=== PATIENT | female | born 1955 | race African-American/Black ===

== ENCOUNTER 2025-03-22 17:16 | Inpatient (IN) | payer MEDICARE, MEDICAID ==
[~2025-03-22] VITALS: Ht 165.1 cm; Wt 64.4 kg
[~2025-03-22 17:16] MED LIST: LEVO500T2 PO; P20 PO; PHEN100C4; PHEN100C4 PO; PRED10TA PO; PRED5TAB48 PO
[2025-03-22 17:25] VITALS: O2SAT 99
[2025-03-22] MEDS: CEFTRIAXONE 1GM/50ML 50 ML IV ONE (17:48)
[2025-03-22 17:56] LABS: BASOPHILS % 0.4 % (0.0-2.0); EOSINOPHILS % 0.2 % (0.0-5.0); HEMATOCRIT. 37.0 % (36.0-48.0); HEMOGLOBIN. 11.9 g/dL (12.0-16.0); LYMPHOCYTES % 37.1 % (20.0-50.0); MEAN PLATELET VOLUME 8.8 fl (7.4-10.4); MONOCYTES % 5.6 % (2.0-8.0); NEUTROPHILS % 56.7 % (40.0-76.0); PLATELET 174 x1000/uL (130-400); RED BLOOD CELL COUNT 3.89 mill/uL (4.2-5.4); RED CELL DISTRIBUTION WIDTH 15.6 % (11.6-14.6)
[2025-03-22 18:06] LABS: INR 1.0
[2025-03-22 18:12] LABS: CREATININE 0.8 mg/dL (0.6-1.0); TROPONIN I HIGH SENSITIVITY 8 ng/L (3.0-34); UREA NITROGEN BLOOD 9 mg/dL (9-23)
[2025-03-22 18:14] LABS: ASPARTATE AMINOTRANSFERASE 17 IU/L (<34); BILIRUBIN DIRECT < 0.1 mg/dL (<=3.0)
[2025-03-22 18:15] LABS: BILIRUBIN TOTAL 0.3 mg/dL (0.1-1.0); PROTEIN TOTAL 5.7 g/dL (6.0-8.3)
[2025-03-22] MEDS: AZITHROMYCIN 500MG/250ML 250 ML IV ONE (19:05)
[2025-03-22] MEDS: SODIUM CHLORIDE 0.9% (SEPSIS BOLUS) IV ONE (19:05)
[2025-03-22] MEDS: ONDANSETRON HCL 4MG/2ML INJ IV ONE (19:05)
[2025-03-22 19:42] LABS: *AMPHETAMINES SCREEN URINE NEGATIVE (NEGATIVE); *BARBITURATES SCREEN URINE NEGATIVE (NEGATIVE); *BENZODIAZEPINES SCREEN URINE NEGATIVE (NEGATIVE); *COCAINE SCREEN URINE NEGATIVE (NEGATIVE); GLUCOSE URINE NEGATIVE (NEGATIVE); KETONES URINE NEGATIVE (NEGATIVE); LEUKOCYTE ESTERASE URINE TRACE (NEGATIVE); METHADONE URINE SCREEN NEGATIVE (NEGATIVE); NITRITE URINE NEGATIVE (NEGATIVE); OCCULT BLOOD URINE NEGATIVE (NEGATIVE); OPIATES URINE SCREEN NEGATIVE (NEGATIVE); PH URINE 6.5 (4.5-8.0); PHENCYCLIDINE URINE SCREEN NEGATIVE (NEGATIVE); PROTEIN URINE NEGATIVE (NEGATIVE); SPECIFIC GRAVITY URINE 1.011 (1.005-1.030); UROBILINOGEN URINE 0.2 E.U./dL (0.2-1.0)
[2025-03-22 19:43] LABS: CANNABINOID URINE SCREEN PRESUMPTIVE POSITIVE (NEGATIVE); ECSTASY MDMA SCREEN URINE NEGATIVE (NEGATIVE)
[2025-03-22 19:47] LABS: TROPONIN I HIGH SENSITIVITY 9 ng/L (3.0-34)
[2025-03-22 20:24] LABS: CLARITY URINE SL HAZY (CLEAR); COLOR URINE STRAW (YELLOW)
[2025-03-22 20:26] LABS: RBC URINE NONE SEEN /hpf (0-2)
[2025-03-22 20:27] LABS: BACTERIA URINE TRACE; SQUAMOUS EPITHELIAL CELL URINE 2+ /lpf (RARE/1+)
[2025-03-22] MEDS ORDERED: IPRATROPIUM/ALBUTEROL 0.5-3(2.5)MG/3ML NEB HHN PRN (21:00)
[2025-03-22] MEDS ORDERED: ONDANSETRON HCL 4MG/2ML INJ IV PRN (21:00)
[2025-03-22] MEDS: PANTOPRAZOLE SODIUM 40 MG/VIAL IV SCH (21:15)
[2025-03-22] MEDS ORDERED: SODIUM CHLORIDE 0.45% 1,000 ML IV SCH (21:30)
[2025-03-22 22:15] VITALS: BP 98/55; PULSE 51; RESP 17; TEMP 36.3624
[2025-03-22 22:17] VITALS: BP 98/55; PULSE 51; RESP 17; TEMP 36.3; O2SAT 100
[2025-03-22] MEDS ORDERED: DEXTROSE 50% WATER 50ML SYRINGE IV PRN (22:45)
[2025-03-22] MEDS: DEXT 5%/0.45% NACL 1000ML 1,000 ML IV SCH (23:00)
[2025-03-23] VITALS: BP 108/58; PULSE 61; RESP 17; TEMP 36.6; O2SAT 96
[2025-03-23 04:00] VITALS: BP 116/63; PULSE 64; RESP 17; TEMP 36.2; O2SAT 97
[2025-03-23] MEDS: PIPERACILLIN/TAZO 3.375G/50ML 50 ML IV SCH (05:11)
[2025-03-23 07:38] LABS: CREATININE 0.8 mg/dL (0.6-1.0)
[2025-03-23 07:39] LABS: TRIGLYCERIDE 80 mg/dL (0-150); UREA NITROGEN BLOOD 6 mg/dL (9-23)
[2025-03-23 07:40] LABS: LDL CHOLESTEROL 74 mg/dL (5-100)
[2025-03-23 07:41] LABS: T4 FREE 0.87 ng/dL (0.89-1.76)
[2025-03-23 07:49] LABS: FOLIC ACID (FOLATE) SERUM 13.02 ng/mL (>5.38)
[2025-03-23 07:50] LABS: VITAMIN B12 SERUM 159 pg/mL (211-911)
[2025-03-23 08:00] VITALS: BP 134/69; PULSE 50; RESP 16; TEMP 37
[2025-03-23] MEDS: LEVETIRACETAM 500MG PREMIX 100 ML IV SCH (08:18)
[2025-03-23 08:28] LABS: BASOPHILS % 0.2 % (0.0-2.0); EOSINOPHILS % 0.2 % (0.0-5.0); HEMATOCRIT. 34.6 % (36.0-48.0); HEMOGLOBIN. 11.5 g/dL (12.0-16.0); LYMPHOCYTES % 43.5 % (20.0-50.0); MEAN PLATELET VOLUME 10.2 fl (7.4-10.4); MONOCYTES % 6.5 % (2.0-8.0); NEUTROPHILS % 49.6 % (40.0-76.0); PLATELET 171 x1000/uL (130-400); RED BLOOD CELL COUNT 3.70 mill/uL (4.2-5.4); RED CELL DISTRIBUTION WIDTH 15.4 % (11.6-14.6)
[2025-03-23] MEDS: ENOXAPARIN 40MG/0.4ML SYR SUBCUT SCH (09:00)
[2025-03-23] MEDS: BLOOD SUGAR DIAGNOSTIC STRIP TEST SCH (09:00)
[2025-03-23] MEDS: CYANOCOBALAMIN 1000MCG/ML VIAL IM NR (11:00)
[2025-03-23 12:00] VITALS: BP 153/77; RESP 16; TEMP 36.7; O2SAT 96
[2025-03-23] MEDS: PHENYTOIN SODIUM EXTENDED 100MG CAPSULE PO SCH (13:55)
[2025-03-23 16:00] VITALS: BP 140/90; PULSE 45; RESP 17; TEMP 36.4; O2SAT 96
[2025-03-23] MEDS: DEXT 5% WATER 500 ML IV ONE (16:07)
[2025-03-23 20:00] VITALS: BP 167/79; PULSE 86; RESP 20; TEMP 36.9; O2SAT 98
[2025-03-24] VITALS: BP 147/75; PULSE 48; RESP 17; TEMP 36.4; O2SAT 97
[2025-03-24 04:00] VITALS: BP 130/66; PULSE 50; RESP 17; TEMP 37.1; O2SAT 97
[2025-03-24 06:36] LABS: BASOPHILS % 0.6 % (0.0-2.0); EOSINOPHILS % 0.7 % (0.0-5.0); HEMATOCRIT. 36.1 % (36.0-48.0); HEMOGLOBIN. 11.9 g/dL (12.0-16.0); LYMPHOCYTES % 48.0 % (20.0-50.0); MEAN PLATELET VOLUME 9.2 fl (7.4-10.4); MONOCYTES % 7.0 % (2.0-8.0); NEUTROPHILS % 43.7 % (40.0-76.0); PLATELET 167 x1000/uL (130-400); RED BLOOD CELL COUNT 3.89 mill/uL (4.2-5.4); RED CELL DISTRIBUTION WIDTH 15.1 % (11.6-14.6)
[2025-03-24 07:37] LABS: UREA NITROGEN BLOOD < 5 mg/dL (9-23)
[2025-03-24 07:39] LABS: CREATININE 0.9 mg/dL (0.6-1.0)
[2025-03-24 07:41] LABS: ASPARTATE AMINOTRANSFERASE 18 IU/L (<34); BILIRUBIN DIRECT 0.1 mg/dL (<=3.0); BILIRUBIN TOTAL 0.5 mg/dL (0.1-1.0); PHOSPHORUS 3.6 mg/dL (2.5-4.9)
[2025-03-24 07:42] LABS: PROTEIN TOTAL 5.6 g/dL (6.0-8.3)
[2025-03-24 08:00] VITALS: BP 146/68; PULSE 51; RESP 19; TEMP 36.3; O2SAT 96
[2025-03-24 12:00] VITALS: BP 153/77; PULSE 72; RESP 18; TEMP 36.5; O2SAT 97
[2025-03-24] MEDS: POTASSIUM CHLORIDE 20MEQ/PACKET PO NR (13:45)
[2025-03-24] MEDS: MAGNESIUM OXIDE 400MG TABLET PO SCH (15:00)
[2025-03-24 16:00] VITALS: BP 148/61; PULSE 61; RESP 18; TEMP 36.6; O2SAT 98
[2025-03-24] MEDS: CYANOCOBALAMIN 1000MCG/ML VIAL IM NR (18:25)
[2025-03-24 20:00] VITALS: BP 151/76; PULSE 57; RESP 17; TEMP 36.2; O2SAT 98
[2025-03-25] VITALS: BP 145/69; PULSE 56; RESP 17; TEMP 36.8; O2SAT 95
[2025-03-25] MEDS: ACETAMINOPHEN 650MG/20.3ML UDC PO PRN (01:11)
[2025-03-25 04:00] VITALS: BP 134/72; PULSE 50; RESP 17; TEMP 36.2; O2SAT 97
[2025-03-25 07:09] LABS: CREATININE 0.8 mg/dL (0.6-1.0); UREA NITROGEN BLOOD < 5 mg/dL (9-23)
[2025-03-25 07:18] LABS: BASOPHILS % 0.5 % (0.0-2.0); EOSINOPHILS % 0.5 % (0.0-5.0); HEMATOCRIT. 38.3 % (36.0-48.0); HEMOGLOBIN. 12.6 g/dL (12.0-16.0); LYMPHOCYTES % 56.0 % (20.0-50.0); MEAN PLATELET VOLUME 9.8 fl (7.4-10.4); MONOCYTES % 8.3 % (2.0-8.0); NEUTROPHILS % 34.7 % (40.0-76.0); PLATELET 170 x1000/uL (130-400); RED BLOOD CELL COUNT 4.14 mill/uL (4.2-5.4); RED CELL DISTRIBUTION WIDTH 15.2 % (11.6-14.6)
[2025-03-25 08:00] VITALS: BP 137/72; PULSE 58; RESP 18; TEMP 36.5; O2SAT 99
[2025-03-25 08:50] LABS: TROPONIN I HIGH SENSITIVITY 9 ng/L (3.0-34)
[2025-03-25] MEDS: ACETAMINOPHEN 325MG TABLET PO PRN (09:19)
[2025-03-25 12:00] VITALS: BP 145/79; PULSE 50; RESP 18; TEMP 36.5; O2SAT 99
[2025-03-25] MEDS: THEOPHYLLINE ANHYDROUS 80MG/15ML ORAL SYR PO SCH (15:33)
[2025-03-25 16:00] VITALS: BP 109/73; PULSE 46; RESP 19; TEMP 36.6; O2SAT 99
[2025-03-25 20:00] VITALS: BP 144/78; PULSE 48; RESP 15; TEMP 36.8; O2SAT 96
[2025-03-25] MEDS: FAMOTIDINE 20MG TABLET PO SCH (21:12)
[2025-03-26] VITALS: BP 159/86; PULSE 49; RESP 16; TEMP 36.8; O2SAT 96
[2025-03-26 04:00] VITALS: BP 156/84; PULSE 54; RESP 16; TEMP 36.9; O2SAT 97
[2025-03-26 06:41] LABS: BASOPHILS % 0.6 % (0.0-2.0); EOSINOPHILS % 0.3 % (0.0-5.0); HEMATOCRIT. 41.1 % (36.0-48.0); HEMOGLOBIN. 13.5 g/dL (12.0-16.0); LYMPHOCYTES % 53.7 % (20.0-50.0); MEAN PLATELET VOLUME 9.6 fl (7.4-10.4); MONOCYTES % 7.3 % (2.0-8.0); NEUTROPHILS % 38.1 % (40.0-76.0); PLATELET 197 x1000/uL (130-400); RED BLOOD CELL COUNT 4.46 mill/uL (4.2-5.4); RED CELL DISTRIBUTION WIDTH 15.5 % (11.6-14.6)
[2025-03-26 06:55] LABS: CREATININE 0.8 mg/dL (0.6-1.0); UREA NITROGEN BLOOD < 5 mg/dL (9-23)
[2025-03-26 08:00] VITALS: BP 144/52; PULSE 58; RESP 18; TEMP 36.3; O2SAT 99
[2025-03-26] MEDS ORDERED: THEO100C MT ×2 (09:01→12:08)
[2025-03-26] MEDS ORDERED: PHEN100C4 PO (09:01)
[2025-03-26 11:45] VITALS: BP 144/52; PULSE 58; RESP 18; TEMP 97.4
[2025-03-26] MEDS ORDERED: PHEN100C4 MT (12:08)
[2025-03-26 13:00] VITALS: BP 143/65; PULSE 52; RESP 20; TEMP 36.6; O2SAT 98
== END 2025-03-26 14:03 | disposition home or self-care (01) | DRG 871 ==
LOC: ER 17:16 → EDBEDREQ 17:29 → EDBEDREQTM 20:13 → ENRESERV 21:48 → 5WST 22:30
PROVIDERS: ADMIT Hospitalist; ATTEND Hospitalist
DX: A41.9 Sepsis, unspecified organism (principal); R65.21 Severe sepsis with septic shock; E87.20 Acidosis, unspecified; E87.0 Hyperosmolality and hypernatremia; D64.9 Anemia, unspecified; E11.9 Type 2 diabetes mellitus without complications; E03.8 Other specified hypothyroidism; E53.8 Deficiency of other specified B group vitamins; F12.10 Cannabis abuse, uncomplicated; I11.9 Hypertensive heart disease without heart failure; J44.9 Chronic obstructive pulmonary disease, unspecified; G40.909 Epilepsy, unspecified, not intractable, without status epilepticus; E78.5 Hyperlipidemia, unspecified; K57.30 Diverticulosis of large intestine without perforation or abscess without bleeding; E86.0 Dehydration; F14.10 Cocaine abuse, uncomplicated; F17.210 Nicotine dependence, cigarettes, uncomplicated; K80.20 Calculus of gallbladder without cholecystitis without obstruction; K82.8 Other specified diseases of gallbladder; Z86.73 Personal history of transient ischemic attack (TIA), and cerebral infarction without residual deficits; K52.9 Noninfective gastroenteritis and colitis, unspecified; E86.1 Hypovolemia
CPT/HCPCS: 36415; 71045; 74176; 76700; 80048; 80061; 80076; 80305; 80320; 81003; 82270; 82550; 82607; 82746; 82962; 83036; 83540; 83550; 83605; 83735; 83880; 84100; 84145; 84439; 84443; 84481; 84484; 85025; 93005; 93306; 93970; 96365; 96367; 96375; 99285; J0456; J0696; J1650; J1953; J2405; J2470; J2543; J3420; J7030; G0480